=== PATIENT | male | born 1985 | race Caucasian/White ===

== ENCOUNTER 2019-09-23 12:08 | Emergency (ER) | payer OTHER, SELFPAY ==
[2019-09-23 12:15] VITALS: BP 105/54; PULSE 79; RESP 16; TEMP 37.7; O2SAT 99
[2019-09-23] MEDS: TETANUS,DIPHTHERIA,AC PERTUSSIS ADULT 0.5 ML (ADACEL) IM (12:20)
--- NOTE | 2019-09-23 12:20 | ED.WOUNDLAC ---
HPI - Wound/Laceration General Chief Complaint: Wound/Laceration Stated Complaint: left foot injured Time Seen by Provider: 09/23/19 12:21 Source: patient and RN notes reviewed History of Present Illness HPI narrative: Patient is a 34-year-old male that presents the urgent care with complaints of puncture wound to the left foot. Patient states that he stepped on 2 nails today, had a puncture wound to the bottom of the left foot, but not enough to draw blood . Patient states that he needs a tetanus shot . Patient was wearing a shoe with a thin sole. No other acute complaints or injuries. No acute distress noted. Patient read the plan of care. Related Data Allergies Allergy/AdvReac Type Severity Reaction Status Date / Time Penicillins Allergy Intermediate rash and Verified 06/09/18 09:38 itching Review of Systems Review of Systems: Narrative: CONSTITUTIONAL: Denies fever, chills, or sweats. EYES: Denies visual changes, redness, or discharge. ENT: Denies rhinorrhea, congestion, sore throat, or otalgia. CARDIOVASCULAR: Denies chest pain, palpitations, or edema. RESPIRATORY: Denies cough or dyspnea. GASTROINTESTINAL: Denies abdominal pain, nausea, vomiting, or diarrhea. GENITOURINARY: Denies dysuria or hematuria. SKIN: Reports a puncture wounds to the bottom of the left foot MUSCULOSKELETAL: Denies back pain, joint pain, or myalgia. NEUROLOGIC: Denies headache, numbness, or weakness. All other systems reviewed are negative, except as documented in HPI. PMFSH Comments At the time of my signature, I reviewed and agree with the nursing past medical, surgical, social, and family history. There is no relevant family history pertinent to the patient complaint. Exam Narrative: Exam Narrative: GENERAL: This is a well-nourished, well-developed patient, in no apparent distress. HEAD: normocephalic, atraumatic. EYES: PERRL. Sclera clear/white. Vision is grossly intact. EARS: External ears normal NOSE: External nose normal with no obvious nasal discharge THROAT: Mucous membranes moist NECK: Neck supple SKIN: Pinpoint puncture wounds noted to the plantar aspect of the left foot without any surrounding erythema or drainage NEURO: awake, alert, and oriented to person, place and time. There were no obvious focal neurologic abnormalities. EXTREMITIES: No clubbing, cyanosis, or edema. Course Vital Signs Vital signs: Vital Signs Temperature 99.8 F H 09/23/19 12:15 Pulse Rate 79 09/23/19 12:15 Respiratory Rate 16 09/23/19 12:15 Blood Pressure 105/54 L 09/23/19 12:15 Pulse Oximetry 99 09/23/19 12:15 Temperature 99.8 F H 09/23/19 12:15 Pulse Rate 79 09/23/19 12:15 Respiratory Rate 16 09/23/19 12:15 Blood Pressure 105/54 L 09/23/19 12:15 Pulse Oximetry 99 09/23/19 12:15 Reviewed MDM - Wound/Laceration MDM Narrative Medical decision making narrative: Advised the patient to keep the wounds very clean and free of debris. Very unlikely that they will become infected unless they are not covered. May use Neosporin over the area if necessary. You are now up-to-date on your tetanus shot. If you develop any increase in pain associated with severe swelling, redness, discharge from the puncture sites?go to the emergency room. Follow-up with your PCP within 2 to 5 days or for worsening symptoms or failure to improve. Differential Diagnosis Differential diagnosis: Likely laceration, abscess and abrasion Critical Care Time Critical Care Time Critical Care Time: No Discharge Plan Discharge Clinical Impression: Puncture wound Patient Disposition: Home, Self-Care Condition: Stable Instructions: Antibiotic Form, Puncture Wound in the Foot (ED) Additional Instructions: Advised the patient to keep the wounds very clean and free of debris. Very unlikely that they will become infected unless they are not covered. May use Neosporin over the area if necessary. You are now up-to-date on your tetanus shot.
== END 2019-09-23 12:34 | disposition home or self-care (01) ==
PROVIDERS: Emergency Provider Nurse Practitioner Family
DX: S91.332A Puncture wound without foreign body, left foot, initial encounter (principal); Z23 Encounter for immunization; W45.0XXA Nail entering through skin, initial encounter
CPT/HCPCS: 90471; 90715; 99212; G0463